=== PATIENT | male | born 1975 | race African-American/Black ===

== ENCOUNTER → 2017-01-02 | Outpatient (CLI) | payer OTHER ==
--- NOTE | 2017-01-02 21:04 | REP ---
Whole body PET CT scan: Says performed for evaluation of a single pulmonary nodule in the lower lobe of the left lung. Whole body PET CT scanning is performed from skull base to the upper thighs. Neck and supraclavicular areas: There are no hypermetabolic foci. Chest: There are no hypermetabolic foci. The left lower lobe lung nodule demonstrates non hypermetabolic uptake with a standard uptake value of 1.8. Abdomen, pelvis and upper thighs: There are no hypermetabolic foci. Impression: Negative whole-body PET CT scan. There are no hypermetabolic foci. The standard uptake value of the patient's known left lung lower lobe nodule is 1.8. This is below the hypermetabolic threshold. The study is performed with 9.2 mCi of F 18 FDG. Signed by Altaf Farris MD 01/02/2017 08:55 P
== END ==
LOC: M PLARAD 10:12
PROVIDERS: ATTEND Internal Medicine Pulmonary Disease
DX: R91.1 Solitary pulmonary nodule (principal)
CPT/HCPCS: 78815; A9552

== ENCOUNTER → 2017-04-11 | Outpatient (REF) | payer OTHER ==
[2017-04-11 13:56] LABS: % NORMAL FORMS 6 % (>=4); IMMOTILITY 49 %; NON PROGRESSIVE MOTILITY (c) 23 %; PROGRESSIVE MOTILITY (a) 28 % (>=32); TOTAL MOTILITY 51 % (>=40)
[2017-04-11 13:57] LABS: SPERM# 16.9 M/Ejac (>=39); TOTAL FUNCTIONAL 0.7 M/Ejac.; TOTAL PROGRESSIVE SPERM 4.8 M/Ejac.
== END ==
LOC: M LAB REF 13:31
PROVIDERS: ATTEND Physician Assistant
DX: N46.9 Male infertility, unspecified (principal)

== ENCOUNTER → 2017-04-12 | Outpatient (CLI) | payer OTHER ==
--- NOTE | 2017-04-12 11:27 | REP ---
Clinical: Follow-up left lower extremity thrombus . Technique: Andres scale and color Doppler evaluation using linear high frequency transducer. Findings: Ultrasound examination of the left lower extremity deep venous structures from the common femoral vein to the popliteal vein demonstrates minimal residual nonocclusive thrombus at the popliteal level and complete resolution of the remaining thrombus noted on prior examinations. Impression: Very minimal residual nonocclusive thrombus at the popliteal level. Remainder the examination appears normal. Signed by Kenton Orozco MD 04/12/2017 11:16 A
== END ==
LOC: M RAD 10:10
PROVIDERS: ATTEND Surgery Vascular Surgery
DX: I82.492 Acute embolism and thrombosis of other specified deep vein of left lower extremity (principal)

== ENCOUNTER → 2017-09-13 | Outpatient (REF) | payer OTHER ==
[2017-09-13 20:52] LABS: SEMEN APPEARANCE OPAQUE (OPAQUE)
[2017-09-13 20:53] LABS: SEMEN VISCOSITY VISCOUS (LIQUID); SEMEN VOLUME 2.5 ml (4.0-5.0); SPERM ABNORMAL FORMS OTHER (SPECIFIY)
[2017-09-13 20:54] LABS: % NORMAL FORMS 10 % (>=4); IMMOTILITY 41 %; NON PROGRESSIVE MOTILITY (c) 18 %; PROGRESSIVE MOTILITY (a) 41 % (>=32); SPERM CONCENTRATION 16.9 M/ml (>=15.0); SPERM# 42.3 M/Ejac (>=39); TOTAL FUNCTIONAL 3.9 M/Ejac.; TOTAL MOTILITY 59 % (>=40); TOTAL PROGRESSIVE SPERM 17.2 M/Ejac.; WBC CONCENTRATION <=1 M/ml (<=1 M/ml)
== END ==
LOC: M LAB REF 16:34
DX: Z31.41 Encounter for fertility testing (principal)

== ENCOUNTER → 2017-10-28 | Outpatient (CLI) | payer OTHER, SELFPAY | LOC: M RAD 07:36 | DX: R91.1 Solitary pulmonary nodule (principal) ==